=== PATIENT | female | born 1985 | race Caucasian/White ===

== ENCOUNTER → 2021-04-03 13:03 | Outpatient (BNVA) | payer MEDICAID, SELFPAY | PROVIDERS: Visit Provider Emergency Medicine | DX: Z20.822 Contact with and (suspected) exposure to COVID-19 (principal); R68.89 Other general symptoms and signs | CPT/HCPCS: 87635 ==

== ENCOUNTER → 2022-06-07 16:15 | Outpatient (BNVA) | payer MEDICAID, SELFPAY | PROVIDERS: PCP Family Medicine; Visit Provider Urology | DX: Z41.9 Encounter for procedure for purposes other than remedying health state, unspecified (principal); T85.9XXA Unspecified complication of internal prosthetic device, implant and graft, initial encounter | CPT/HCPCS: 87086; 87426 ==

== ENCOUNTER 2022-10-21 14:10 | Outpatient (RCR) | payer OTHER, MEDICAID, SELFPAY | END 2022-11-02 23:59 | disposition home or self-care (01) | LOC: SPT 14:10 | PROVIDERS: PCP Family Medicine; Visit Provider Family Medicine | DX: Z98.890 Other specified postprocedural states (principal); N39.3 Stress incontinence (female) (male) | CPT/HCPCS: 97110; 97161; 97530 ==

== ENCOUNTER 2022-11-03 06:00 | Outpatient (RCR) | payer OTHER, MEDICAID, SELFPAY | END 2022-12-03 23:59 | disposition home or self-care (01) | LOC: SPT 06:00 | PROVIDERS: PCP Family Medicine; Visit Provider Family Medicine | DX: Z98.890 Other specified postprocedural states (principal) | CPT/HCPCS: 97110 ==

== ENCOUNTER → 2023-01-17 08:50 | Outpatient (BNVA) | payer OTHER, MEDICAID, SELFPAY | PROVIDERS: PCP Family Medicine; Visit Provider Family Medicine | DX: J42 Unspecified chronic bronchitis (principal); Z98.890 Other specified postprocedural states; I10 Essential (primary) hypertension; Z68.36 Body mass index [BMI] 36.0-36.9, adult; R53.82 Chronic fatigue, unspecified; E55.9 Vitamin D deficiency, unspecified; Z83.3 Family history of diabetes mellitus; R53.83 Other fatigue; Z13.6 Encounter for screening for cardiovascular disorders; Z13.220 Encounter for screening for lipoid disorders | CPT/HCPCS: 80053; 80061; 82607; 82652; 83036; 84443; 85025 ==

== ENCOUNTER 2023-05-03 06:39 | Outpatient (CLI) | payer OTHER, MEDICAID, SELFPAY ==
--- NOTE | 2023-05-03 06:45 | US_ITS ---
WS: [id number] ULTRASOUND SOFT TISSUES RIGHT neck HISTORY: epidermal cyst right side of neck COMPARISON: None available. TECHNIQUE: 2-D and color Doppler imaging is submitted. Patient directed ultrasound to the area of concern. Along the RIGHT posterior neck there is a hypoech oic mass measuring 9 x 3 x 8 mm. Slightly irregular borders and minimal increased vascularity. There is an additional more well-circumscribed hypoechoic mass measuring 6 x 3 x 5 mm along the posterior R IGHT neck close to the palpable area. This smaller mass is a lymph node. IMPRESSION: 1. There are 2 hypoechoic areas along the posterior RIGHT neck within the subcutaneous soft tissue. T he larger area may be a small epidermal or sebaceous cyst. The smaller mass does appear to be a lymph node. 2. No enlarged lymph nodes.
== END 2023-05-03 06:40 | disposition home or self-care (01) ==
PROVIDERS: PCP Family Medicine; Visit Provider Surgery
DX: L72.0 Epidermal cyst (principal)
CPT/HCPCS: 76536

== ENCOUNTER 2023-05-18 06:48 | Day surgery (SDC) | payer OTHER, MEDICAID, SELFPAY ==
[2023-05-17 11:43] VITALS: BMI 37.1
[2023-05-18] VITALS (10 sets, daily range): BP systolic 94–136; BP diastolic 45–98; PULSE 79–118; RESP 13–26; TEMP 36.2–36.6; O2SAT 98–100; BMI 37.1
--- NOTE | 2023-05-18 06:30 | P.HPUD_ITS ---
Surgery/Procedure H&P Update DATE OF PROCEDURE: May 18, 2023 DATE H&P PERFORMED: 05/06/23 H&P UPDATE INFORMATION: I have reviewed H&P completed within last 30 days, I have examined patient prior to procedure, No changes to prior documentation and H&P is in [facility] EMR on date indicated PLANNED PROCEDURE: Operation Date: 05/18/23 08:25 Proposed Procedures p [id number] Excision of neck mass L72.0(Not Applicable) - Sammy Pina MD
[2023-05-18] MEDS: sodium chloride 0.9% 1,000 ML 30 ML IV (07:38)
[2023-05-18] MEDS: scopolamine 1.5 Patch 1 PATCH TRANSDERMA (07:40)
[2023-05-18] MEDS: ondansetron 2 mg/ML SDV 2 mL 4 MG IVP (07:46)
[2023-05-18] MEDS: diphenhydrAMINE 50 mg/mL SDV 1mL 12.5 MG IVP (07:47)
--- NOTE | 2023-05-18 09:51 | ANES.PREANE2 ---
Pre-Anesthetic Assessment Height/Weight: Height 1.68 m Weight 104.326 kg Temp Pulse Resp BP Pulse Ox O2 Del Method 97.8 F 79 18 128/82 100 Room Air 05/18/23 07:08 05/18/23 07:08 05/18/23 07:08 05/18/23 07:08 05/18/23 07:08 05/18/23 07:08 Operation Date: 05/18/23 08:25 Proposed Procedures p [id number] Excision of neck mass L72.0(Not Applicable) - Sammy Pina MD Familial anesthetic complications: PONV Was Beta Ananya taken within 24 hours: N/A Was Clonidine taken within 24 hours: N/A Last intake: Intake Last Liquid Date 05/17/23 Last Liquid Time 23:30 Last Solid Date 05/17/23 Last Solid Time 23:30 Social No alcohol and No tobacco Exam alert, oriented x 3, clear to auscultation bilaterally and regular rate & rhythm Airway Submandibular: within normal limits Cervical ROM: within normal limits Mallampati: Class II Dentition: full CV/HEM Hypertension Neuropsych Anxiety Anesthetic Plan ASA status: 2 Anesthesia: Choice Medications/Allergies Home Medications Medication Instructions Recorded Confirmed Last Taken Type lactobacillus combination no.9 4 1 mmu cells PO DAILY 04/25/23 05/18/23 05/13/23 History billion cell capsule (Adult 50 Plus Probiotic) multivitamin 1 tab PO DAILY 04/25/23 05/17/23 Unknown History Allergies Allergy/AdvReac Type Severity Reaction Status Date / Time No Known Allergies Allergy Verified 05/18/23 07:02 Current Medications Generic Name Dose Route Start Last Admin Trade Name Zaneq PRN Reason Stop Dose Admin Diphenhydramine HCl 12.5 mg 05/18/23 06:56 05/18/23 07:47 Diphenhydramine 50 Mg/Ml Sdv 1ml IVP 12.5 mg ONCE PRN Administration Postop N/V Sodium Chloride 1,000 mls @ 30 mls/hr 05/18/23 07:00 05/18/23 07:38 Sodium Chloride 0.9% IV 05/19/23 06:59 30 mls/hr .Q24H SNEHAL Administration Ondansetron HCl 4 mg 05/18/23 06:56 05/18/23 07:46 Ondansetron 2 Mg/Ml Sdv 2 Ml IVP 4 mg ONCE PRN Administration NAUSEA AND VOMITING PFSH Anesthesia Surgical History (Updated 05/06/23 @ 09:06 by Kristen Robert) Status post creation of urethral sling by suprapubic approach Family History Father Diabetes Hypertension Cancer lung/colon Mother Cancer breast Hypertension Social History Smoking and tobacco status: never smoked Alcohol intake: current Alcohol intake frequency: holidays/special occasions only Substance/Drug Use: never Current gender identity: Female Female Reproductive History Spontaneous abortions: No Data Anesthesia Cardiac Studies: No Data to Display
[2023-05-18] MEDS: ceFAZolin 2,000 MG in sodium chloride 0.9% (plus) 50 ML 100 MG IV (10:01)
[2023-05-18] MEDS: lidocaine-epi 1% 20 mL INJ INJECTION (10:36)
--- NOTE | 2023-05-18 10:40 | P.OP_ITS ---
Operative Report Date of procedure: May 18, 2023 Pre-op diagnosis: Right neck mass Post-op diagnosis: Same Procedure done: Excision of right neck mass Specimens removed/disposition: right neck mass Surgeon: Sammy Pina MD Estimated blood loss: 5 Findings: 1.6 Centimeter right neck mass associated with the skin. Brief History: Is a 37-year-old female who presented to my clinic for evaluation of a right neck mass, after a lengthy discussion regarding risk and benefits of decided to proceed with excision of right neck mass. Procedure: Patient was brought into the OR. She was given general anesthesia with LMA. She was placed on the left lateral decubitus position with the neck extended. The neck was prepped and draped in the usual sterile fashion. Timeout was conducted. The posterior neck mass was identified and marked, local anesthesia was infiltrated into the tissue. Semicircular incision measuring 1.5 cm was made enclosing the mass in the middle. Incision was deepened to the subcutaneous tissue with scalpel, this was done carefully in order to preserve t he mass capsule. The mass was completely excised from the surrounding tissues using the 15 blade. The mass was passed as specimen. Hemostasis was obtained. The cavity was irrigated. The wound was closed in layers using 3-0 Vicryl for the subcutaneous tissue and 4 Monocryl for the skin. Dermabond was applied. At the end of the procedure all counts were correct. Patient was transferred to [facility] PACU in stable condition.
--- NOTE | 2023-05-18 13:52 | ANE.PACU2 ---
Inpatient post-anesthesia follow up: Airway intact: Yes Vital signs: Temperature 97.8 F Pulse Rate 83 Respiratory Rate 17 Blood Pressure 123/83 Pulse Oximetry 100 Oxygen Delivery Me thod Room Air Oxygen Flow Rate 6 Fraction of Inspir ed Oxygen Hydration adequate: Yes Nausea and vomiting: No Pain level: 1 Mental status: Baseline
== END 2023-05-18 11:53 | disposition home or self-care (01) ==
PROVIDERS: PCP Family Medicine; Visit Provider Surgery
PROC: (CPT 11422; principal; 2023-05-18 08:15)
DX: L72.0 Epidermal cyst (principal); I10 Essential (primary) hypertension
CPT/HCPCS: 11422; 12041; 88304; J0690; J1100; J1200; J2250; J2405; J2704; J3010; J7030

== ENCOUNTER → 2023-10-17 11:13 | Outpatient (BNVA) | payer BC, MEDICAID, SELFPAY | PROVIDERS: PCP Family Medicine; Visit Provider Family Medicine | DX: E04.9 Nontoxic goiter, unspecified (principal); I10 Essential (primary) hypertension | CPT/HCPCS: 80053; 80061; 84443 ==

== ENCOUNTER 2023-10-24 16:30 | Outpatient (CLI) | payer BC, MEDICAID, SELFPAY | END 2023-10-24 16:31 | disposition home or self-care (01) | LOC: SLEEP 10-25 14:20 | PROVIDERS: PCP Family Medicine; Visit Provider Family Medicine | DX: G47.33 Obstructive sleep apnea (adult) (pediatric) (principal); R09.02 Hypoxemia; G47.10 Hypersomnia, unspecified | CPT/HCPCS: G0399 ==

== ENCOUNTER 2024-01-23 07:18 | Outpatient (CLI) | payer BC, MEDICAID, SELFPAY ==
--- NOTE | 2024-01-23 07:15 | US_ITS ---
WS: [id number] US pelv w/transvag [id number] HISTORY: R10.2 - Pelvic and perineal pain COMPARISON: None available. Status post hysterectomy. Both transabdominal and transvaginal imaging performed. No midline uterus. There is no mass in the mi dline. No ascites. Neither ovary is identified. No adnexal mass. US/US pelv w/transvag [id number] IMPRESSION: Status post hysterectomy. Neither ovary is identified. No ascites.
== END 2024-01-23 07:19 | disposition home or self-care (01) ==
LOC: RAD 07:18
PROVIDERS: PCP Family Medicine; Visit Provider Family Medicine
DX: R10.2 Pelvic and perineal pain (principal); Z90.710 Acquired absence of both cervix and uterus
CPT/HCPCS: 76830; 76856

== ENCOUNTER → 2024-02-07 07:05 | Outpatient (BNVA) | payer BC, MEDICAID, SELFPAY | PROVIDERS: PCP Family Medicine; Visit Provider Student in an Organized Health Care Education/Training Program | DX: G56.03 Carpal tunnel syndrome, bilateral upper limbs (principal) | CPT/HCPCS: 73130 ==

== ENCOUNTER 2024-03-07 09:03 | Day surgery (SDC) | payer BC, MEDICAID, SELFPAY ==
[2024-03-07] VITALS (8 sets, daily range): BP systolic 116–136; BP diastolic 62–88; PULSE 69–96; RESP 16–20; TEMP 36.1–36.6; O2SAT 97–100; BMI 39.9
[2024-03-07] MEDS: sodium chloride 0.9% 1,000 ML 30 ML IV (09:35)
[2024-03-07] MEDS: ketorolac 30 mg/mL INJ IVP (09:35)
[2024-03-07] MEDS: acetaminophen 1,000 MG/100 ML PIGGYBACK 400 MG IV (09:35)
[2024-03-07] MEDS: scopolamine 1.5 Patch 1 PATCH TRANSDERMA (09:36)
--- NOTE | 2024-03-07 10:07 | W.PM.OPSUD ---
Surgery/Procedure H&P Update DATE OF PROCEDURE: March 07, 2024 DATE H&P PERFORMED: 02/07/24 H&P UPDATE INFORMATION: I have reviewed H&P completed within last 30 days, I have examined patient prior to procedure and No changes to prior documentation PREOP DIAGNOSIS: Right carpal tunnel syndrome PRIMARY INDICATION FOR PROCEDURE: Right carpal tunnel syndrome PLANNED PROCEDURE: Operation Date: 03/07/24 10:45 Proposed Procedures p Carpal Tunnel Release [id number], G56.03(Right) - Petey Grossman DO
--- NOTE | 2024-03-07 10:17 | ANES.PREANE2 ---
Pre-Anesthetic Assessment Height/Weight: Height 1.65 m Weight 108.862 kg Temp Pulse Resp BP Pulse Ox O2 Del Method 97.0 F L 77 17 136/86 100 Room Air 03/07/24 09:20 03/07/24 09:20 03/07/24 09:20 03/07/24 09:20 03/07/24 09:20 03/07/24 09:23 Preop Diagnosis: Right carpal tunnel syndrome Operation Date: 03/07/24 10:45 Proposed Procedures p Carpal Tunnel Release [id number], G56.03(Right) - Petey Grossman DO Familial anesthetic complications: PONV Tongue went numb from airway instrumentation for a month after a sling surgery - fully recovered Was Beta Ananya taken within 24 hours: N/A Was Clonidine taken within 24 hours: N/A Last intake: Intake Last Liquid Date 03/06/24 Last Liquid Time 23:30 Last Solid Date 03/06/24 Last Solid Time 23:00 Social No alcohol and No tobacco Exam alert and oriented x 3 Airway Mallampati: Class III Dentition: other (4 pulled on bottom, 1 pulled on top) Pulmonary Sleep Apnea CV/HEM Hypertension GI Gastroesophageal Reflux Disease Anesthetic Plan ASA status: 2 Anesthesia: MAC Risk of > 500 ml blood loss (7ml/kg in children): No Medications/Allergies Home Medications Medication Instructions Recorded Confirmed Last Taken Type lactobacillus combination no.9 4 1 mmu cells PO DAILY 04/25/23 03/07/24 03/06/24 History billion cell capsule (Adult 50 Plus Probiotic) multivitamin 1 tab PO DAILY 04/25/23 03/07/24 03/06/24 History tizanidine 4 mg capsule 4 mg PO Q8H PRN muscle spasticity 07/20/23 03/07/24 03/06/24 Rx #21 caps metoprolol succinate 25 mg 25 mg PO DAILY 90 days #90 tabs 10/17/23 03/07/24 03/07/24 Rx tablet,extended release 24 hr omeprazole 20 mg capsule,delayed 20 mg PO DAILY 30 days #30 caps 02/06/24 03/07/24 03/06/24 Rx release ondansetron 4 mg disintegrating 4 mg PO Q8H PRN nausea and 03/07/24 03/07/24 03/06/24 Rx tablet vomiting 3 days #9 tabs tramadol 50 mg tablet 50 mg PO Q6H PRN pain #20 tabs 03/07/24 03/07/24 03/06/24 Rx Allergies Allergy/AdvReac Type Severity Reaction Status Date / Time No Known Allergies Allergy Verified 03/07/24 09:14 Current Medications Generic Name Dose Route Start Last Admin Trade Name Freq PRN Reason Stop Dose Admin Sodium Chloride 1,000 mls @ 30 mls/hr 03/07/24 09:15 03/07/24 09:35 Sodium Chloride 0.9% IV 03/08/24 09:14 30 mls/hr .Q24H SNEHAL Administration PFSH Anesthesia Surgical History Hx of ureter repair december 2021 Hx of dilation and curettage Hx laparoscopic cholecystectomy 2009 Hx of hysterectomy 2018 Status post creation of urethral sling by suprapubic approach Family History Father Diabetes Hypertension Cancer lung/colon Mother Cancer breast Hypertension Social History Smoking and tobacco/nicotine status: never used tobacco/nicotine Alcohol intake: current Alcohol intake frequency: holidays/special occasions only Substance/Drug Use: never Current gender identity: Female Female Reproductive History Spontaneous abortions: No Data Anesthesia Cardiac Studies: No Data to Display
[2024-03-07] MEDS: ceFAZolin 2,000 MG in sodium chloride 0.9% (plus) 50 ML 100 MG IV (11:37)
[2024-03-07] MEDS: lidocaine-epi 1% 20 mL INJ 5 ML INJECTION (11:59)
[2024-03-07] MEDS: ROPivacaine 0.5% SDV 30 mL 25 MG INJECTION (11:59)
--- NOTE | 2024-03-07 12:22 | W.PM.BPON ---
Date of Procedure: 03/07/2024 Surgeon: Petey Grossman DO Litigation Specialist(s): [None] Procedure(s) performed: Right carpal tunnel release Findings of the procedure(s): Right carpal tunnel syndrome underwent procedure as planned without issues or complications Estimated blood loss: 2 mL Specimen(s) removed: None Post-operative diagnosis: Right carpal tunnel syndrome
--- NOTE | 2024-03-07 12:25 | P.OP_ITS ---
Operative Report Date of procedure: March 07, 2024 Surgeon: Petey Grossman DO Procedure: Preoperative diagnosis: Right carpal tunnel syndrome post-op diagnosis: Same Procedure done: 1.?Right carpal tunnel?release Surgeon: Petey Grossman DO Anesthesia: MAC (Local) Estimated blood loss: 2 mL Tourniquet time 9 minutes IV fluids: See anesthesia?record Complications: None Findings: See operative?report narrative Condition: stable Disposition: same day Brief History: Patient is a pleasant 38 year-old female with?right carpal tunnel syndrome.? Patient has been worked up in the outpatient setting findings and physical examination consistent with this.? Patient nerve conduction studies from the past at an outside facility consistent with carpal tunnel syndrome.? We detailed out patient's?risk benefits complication alternatives with surgical and nonsurgical treatment options. Through shared decision making, patient agrees to proceed with surgical intervention of the right carpal tunnel?release .? Patient understands and agrees with current plan.? All questions answered.? Patient elects to proceed with surgical intervention with carpal tunnel?release. Procedure: Patient seen and evaluated in the preoperative holding area.? Consent was?reviewed and signed with patient.? Correct extremity was marked.? Patient was seen evaluated by the anesthesia department once cleared for surgery was brought back to the operative suite.? Patient was kept on [facility] in supine position all bony prominences were well-padded patient properly secured to the bed.??Right upper extremity was then placed onto an armboard.? A nonsterile tourniquet was applied to the?RIght upper arm.? Patient underwent anesthesia per the anesthesia department.? Patient's?Right upper extremity was then prepped and draped in standard orthopedic fashion.? Final timeout performed.? Patient?received appropriate preoperative antibiotics. Under sterile aseptic technique patient?received local anesthesia over the preplanned carpal tunnel incision site. Esmarch was used to exsanguinate the?Right upper extremity and tourniquet was insufflated to 250 mmHg. A standard mini open?Right carpal tunnel incision was made.? Starting distally at Atkinson's cardinal line in line with the fourth?ray extending proximally distal to the wrist crease centered over the carpal tunnel.? Sharp scalpel incision was made through skin and subcutaneous tissue.? Self- retaining?retractor was placed and the palmar fascia was identified.? This was then split longitudinally and direct visualization of the transverse carpal li gament was then made.? I then utilizing scalpel feathered through the transverse carpal ligament until I entered the floor of the transverse carpal tunnel ligament into the carpal tunnel.? Next I switched to dissection scissors and completed my?release of the transverse carpal ligament distally with care to protect the?recurrent motor branch.? I completely?released into the palmar fat and until no entrapment was noted distally.? Care was made to protect the superficial palmar arch during my distal dissection.?? Next I utilized a nasal speculum placed on top of the transverse carpal ligament and utilize this to?retract the subcutaneous fat and tissue and under direct loupe magnification was able to identify the transverse carpal ligament.? Next I then placed a Declo underneath the transverse carpal tunnel ligament to protect the contents of the carpal tunnel and subsequently utilizing dissection scissors under loupe magnification completely?released the transverse carpal ligament proximally into the median antebrachial fascia.? Care was made to protect the palmar cutaneous branch by keeping my scissors curved ulnarly.? Once completely?released, I then placed my Declo and had appropriate decompression of the carpal tunnel proximally as well as distally.? I then inspected the contents of the carpal tunnel which showed an hourglass shape of the median nerve showing its compression.? No masses were noted.? Tendons appeared healthy.? Wound was then thoroughly irrigated.? Tourniquet deflated.? Hemostasis satisfactory with bipolar electrocautery.? I then closed the incision with interrupted nylon stitches.? Xeroform 4 x 4's and a bulky soft dressing was applied.? Patient was then awakened from anesthesia and taken to PACU in stable condition.? Patient tolerated procedure without complications. Disposition: Patient taken to PACU in stable condition?recovering well.? Dressing clean dry and intact.? Patient will?receive appropriate discharge instructions as well as pain medication postoperatively.? Patient to follow-up with me in the office in 2 weeks.? They understand they may be weightbearing as tolerated to the?right hand.? Patient should keep incision clean dry and intact.? Patient understands if any questions or concerns may contact the office
[2024-03-07] MEDS: TRAMadol 50 mg Tablet PO (13:11)
--- NOTE | 2024-03-07 13:15 | ANE.PACU2 ---
Inpatient post-anesthesia follow up: Airway intact: Yes Vital signs: Temperature 97.6 F Pulse Rate 71 Respiratory Rate 17 Blood Pressure 119/88 Pulse Oximetry 99 Oxygen Delivery Me thod Room Air Oxygen Flow Rate Fraction of Inspir ed Oxygen Hydration adequate: Yes Nausea and vomiting: No Pain level: 1 Mental status: Baseline
== END 2024-03-07 13:18 | disposition home or self-care (01) ==
PROVIDERS: PCP Family Medicine; Visit Provider Student in an Organized Health Care Education/Training Program
PROC: (CPT 64721; principal; 2024-03-07 10:45)
DX: G56.01 Carpal tunnel syndrome, right upper limb (principal); G47.30 Sleep apnea, unspecified; I10 Essential (primary) hypertension; K21.9 Gastro-esophageal reflux disease without esophagitis
CPT/HCPCS: 64721; J0131; J0690; J1100; J1200; J1885; J2250; J2405; J2704; J2795; J3010; J7030

== ENCOUNTER → 2024-06-22 08:41 | Outpatient (BNVA) | payer BC, MEDICAID, SELFPAY | PROVIDERS: PCP Family Medicine | DX: N39.0 Urinary tract infection, site not specified (principal) | CPT/HCPCS: 81000 ==

== ENCOUNTER → 2024-08-09 09:03 | Outpatient (BNVA) | payer BC, MEDICAID, SELFPAY | PROVIDERS: PCP Family Medicine; Visit Provider Family Medicine | DX: I10 Essential (primary) hypertension (principal); R82.90 Unspecified abnormal findings in urine; Z87.440 Personal history of urinary (tract) infections | CPT/HCPCS: 80053; 80061; 81000 ==

== ENCOUNTER → 2024-12-05 10:36 | Outpatient (BNVA) | payer BC, MEDICAID, SELFPAY | PROVIDERS: PCP Family Medicine; Visit Provider Family Medicine | DX: M79.671 Pain in right foot (principal) | CPT/HCPCS: 73630 ==